=== PATIENT | male | born 1950 | race Caucasian/White ===

== ENCOUNTER 2018-11-29 11:56 | Emergency (ER) | payer MEDICARE, BC ==
[~2018-11-29] VITALS: Ht 170.2 cm; Wt 63.5 kg
--- NOTE | 2018-11-29 12:10 | ED General ---
General Stated Complaint: STROKE LIKE SYMPTOMS Source of Information: Patient Exam Limitations: No Limitations History of Present Illness Date Seen by Provider: Nov 29, 2018 Time Seen by Provider: 12:08 Initial Comments To ER per private vehicle accompanied by family with concerns of strokelike symptoms. He reports that he personally does not have any concerns of stroke but his family did. He states that he's lost his balance and fallen 4 times in the past 4 days. He did hit the back of his head 2 days ago. He has COPD, smokes cigarettes. He denies any new focal weakness. He does report a chronic cough. He is noted to be febrile at 101 on arrival. Primary care is through the [facility], he just moved here from [place] about 4 months ago and does not have a local provider. Severity: Moderate Associated Systoms: No Chest Pain, No Cough, No Diaphoresis; Fever/Chills; No Headaches, No Nausea/Vomiting; Weakness Allergies and Home Medications Allergies Coded Allergies: latex (Verified Allergy, Unknown, 11/29/18) Home Medications Cefdinir 300 Mg Capsule, 300 MG PO BID Prescribed by: MARTIN GARCIA on 11/29/18 1458 Prednisone 20 Mg Tab, 40 MG PO DAILY Prescribed by: MARTIN GARCIA on 11/29/18 1458 Patient Home Medication List Home Medication List Reviewed: Yes Review of Systems Review of Systems Constitutional: see HPI, chills, fever EENTM: see HPI Respiratory: see HPI, cough; No short of breath Cardiovascular: No chest pain Gastrointestinal: No abdominal pain, No nausea, No vomiting Genitourinary: no symptoms reported; No dysuria Musculoskeletal: no symptoms reported Skin: no symptoms reported Psychiatric/Neurological: No Symptoms Reported; Denies Headache Hematologic/Lymphatic: No Symptoms Reported Physical Exam Vital Signs Vital Signs - First Documented 11/29/18 11:59 Temp 101.4 Pulse 89 Resp 20 B/P (MAP) 128/70 (89) Pulse Ox 96 O2 Delivery Room Air Capillary Refill : Height, Weight, BMI Height: '" Weight: lbs. oz. kg; BMI Method: General Appearance: No Apparent Distress, WD/WN, Chronically ill, Other (alert and oriented, GCS 15. Speaks in full sentences no respiratory distress) Eyes: Bilateral Eye Normal Inspection, Bilateral Eye PERRL HEENT: PERRL/EOMI, TMs Normal Neck: Full Range of Motion, Normal Inspection Respiratory: No Accessory Muscle Use, No Respiratory Distress, Decreased Breath Sounds Cardiovascular: Regular Rate, Rhythm, Normal Peripheral Pulses Gastrointestinal: Normal Bowel Sounds, Non Tender, Soft Extremity: Normal Capillary Refill, Other (. Edema 2+ bilateral lower extremities) Neurologic/Psychiatric: Alert, Oriented x3 Skin: Normal Color, Warm/Dry Focused Exam Lactate Level 11/29/18 12:11: Lactic Acid Level 1.24 Lactic Acid Level Laboratory Tests Test 11/29/18 12:11 Lactic Acid Level 1.24 MMOL/L (0.50-2.00) Progress/Results/Core Measures Suspected Sepsis SIRS Temperature: Pulse: Respiratory Rate: Laboratory Tests 11/29/18 12:11: White Blood Count 16.4H Blood Pressure / Mean: 11/29/18 12:11: Lactic Acid Level 1.24 Laboratory Tests 11/29/18 12:11: Creatinine 1.40H, Platelet Count 183, Total Bilirubin 0.8 Results/Orders Lab Results Laboratory Tests Test 11/29/18 12:11 11/29/18 14:28 Range/Units White Blood Count 16.4 H 4.3-11.0 10^3/uL Red Blood Count 4.02 L 4.35-5.85 10^6/uL Hemoglobin 11.7 L 13.3-17.7 G/DL Hematocrit 35 L 40-54 % Mean Corpuscular Volume 88 80-99 FL Mean Corpuscular Hemoglobin 29 25-34 PG Mean Corpuscular Hemoglobin Concent 33 32-36 G/DL Red Cell Distribution Width 13.6 10.0-14.5 % Platelet Count 183 130-400 10^3/uL Mean Platelet Volume 12.3 H 7.4-10.4 FL Neutrophils (%) (Auto) 91 H 42-75 % Lymphocytes (%) (Auto) 4 L 12-44 % Monocytes (%) (Auto) 4 0-12 % Eosinophils (%) (Auto) 0 0-10 % Basophils (%) (Auto) 0 0-10 % Neutrophils # (Auto) 15.0 H 1.8-7.8 X 10^3 Lymphocytes # (Auto) 0.7 L 1.0-4.0 X 10^3 Monocytes # (Auto) 0.7 0.0-1.0 X 10^3 Eosinophils # (Auto) 0.0 0.0-0.3 10^3/uL Basophils # (Auto) 0.1 0.0-0.1 10^3/uL Neutrophils % (Manual) 82 % Lymphocytes % (Manual) 3 % Monocytes % (Manual) 6 % Band Neutrophils 9 % Blood Morphology Comment NORMAL Sodium Level 132 L 135-145 MMOL/L Potassium Level 4.0 3.6-5.0 MMOL/L Chloride Level 95 L 98-107 MMOL/L Carbon Dioxide Level 26 21-32 MMOL/L Anion Gap 11 5-14 MMOL/L Blood Urea Nitrogen 20 H 7-18 MG/DL Creatinine 1.40 H 0.60-1.30 MG/DL Estimat Glomerular Filtration Rate 51 BUN/Creatinine Ratio 14 Glucose Level 206 H 70-105 MG/DL Lactic Acid Level 1.24 0.50-2.00 MMOL/L Calcium Level 8.6 8.5-10.1 MG/DL Corrected Calcium 8.8 8.5-10.1 MG/DL Total Bilirubin 0.8 0.1-1.0 MG/DL Aspartate Amino Transf (AST/SGOT) 20 5-34 U/L Alanine Aminotransferase (ALT/SGPT) 9 0-55 U/L Alkaline Phosphatase 84 40-136 U/L B-Type Natriuretic Peptide 258.5 H <100.0 PG/ML Total Protein 6.5 6.4-8.2 GM/DL Albumin 3.7 3.2-4.5 GM/DL Urine Color YELLOW Urine Clarity CLEAR Urine pH 7 5-9 Urine Specific Cl[place] 1.010 L 1.016-1.022 Urine Protein 3+ H NEGATIVE Urine Glucose (UA) 3+ H NEGATIVE Urine Ketones NEGATIVE NEGATIVE Urine Nitrite NEGATIVE NEGATIVE Urine Bilirubin NEGATIVE NEGATIVE Urine Urobilinogen NORMAL NORMAL MG/DL Urine Leukocyte Esterase NEGATIVE NEGATIVE Urine RBC (Auto) 2+ H NEGATIVE Urine RBC 0-2 /HPF Urine WBC NONE /HPF Urine Renal Epithelial Cells 0-2 /HPF Urine Crystals NONE /LPF Urine Bacteria NEGATIVE /HPF Urine Casts NONE /LPF Urine Mucus NEGATIVE /LPF Urine Culture Indicated NO Micro Results Microbiology 11/29/18 Influenza Types A,B Antigen (ENMANUEL) - Final, Complete My Orders Orders - MARTIN GARCIA APRN Influenza A And B Antigens (11/29/18 12:06) Ct Head/Cervical Spine Wo (11/29/18 12:06) Chest Pa/Lat (2 View) (11/29/18 12:06) Ua Culture If Indicated (11/29/18 12:06) Cbc With Automated Diff (11/29/18 12:06) Comprehensive Metabolic Panel (11/29/18 12:06) Iv Heplock-Insert (Order) (11/29/18 12:06) BNP (11/29/18 12:06) Blood Culture (11/29/18 12:06) Lactic Acid Analyzer (11/29/18 12:06) Manual Differential (11/29/18 12:11) Ns Iv 500 Ml (Sodium Chloride 0.9%) (11/29/18 13:15) Ibuprofen Tablet (Motrin Tablet) (11/29/18 13:15) Ceftriaxone For Iv Use (Rocephin For I (11/29/18 15:00) Medications Given in ED Current Medications Medications Dose Ordered Sig/Thony Route Start Time Stop Time Status Last Admin Dose Admin Ceftriaxone Sodium 1000 mg/ Sterile Water 10 ml @ 200 mls/hr ONCE ONCE IV 11/29/18 15:00 11/29/18 15:02 DC 11/29/18 15:20 200 MLS/HR Ibuprofen 600 mg ONCE ONCE PO 11/29/18 13:15 11/29/18 13:16 DC 11/29/18 13:35 600 MG Vital Signs/I&O 11/29/18 11/29/18 11/29/18 11:59 12:35 13:35 Temp 101.4 101.4 100.9 Pulse 89 85 Resp 20 20 B/P (MAP) 128/70 (89) 129/74 Pulse Ox 96 96 O2 Delivery Room Air Capillary Refill : Diagnostic Imaging Diagonstic Imaging: Xray Comments NAME: PEDRO PABLO [facility] REC#: [id number] PT STATUS: REG ER : 1950 PHYSICIAN: MARTIN GARCIA APRN ADMIT DATE: 11/29/18/ER Draft Date of Exam:11/29/18 CHEST PA/LAT (2 VIEW) INDICATION: Stroke-like symptoms. TIME OF EXAM: 12:43 p.m. COMPARISON: No prior studies are available for comparison. FINDINGS: There is some blunting of the right costophrenic angle consistent with minimal pleural fluid or pleural thickening. The heart size is normal. The lungs are clear. Pulmonary vascularity is normal. No pneumothorax is seen. IMPRESSION: Minimal right basilar pleural fluid or pleural thickening. The study is otherwise unremarkable. Dictated on workstation # [id number] Dict: 11/29/18 1254 Trans: 11/29/18 1305 [id number] Interpreted by: JAMES NAILS MD Electronically signed by: Departure Communication (Admissions) [id number]-he remains alert and oriented with GCS 15. He voices no complaints states that he feels better at this time. Oxygen saturation is 96% on room air, heart rate is 85, blood pressure 107/70. He is afebrile. I do not find a source for his leukocytosis or fever. We will treat for exacerbation of COPD, dose of Rocephin here, Ceftin plus prednisone outpatient. Family was notified of this plan and feels that he is a fall risk at home despite the use of his walker and their home is not set up for this. He does not meet admission criteria after discussing with hospitalist. Therapist from acute rehabilitation unit has been down to evaluate the patient and also feels that he is not appropriate for admission there. He will be discharged home. We've discussed with the family the need to follow-up with a shelter of their choosing in the outpatient setting. Impression Primary Impression: COPD exacerbation Additional Impression: Frequent falls Disposition: 01 HOME, SELF-CARE Condition: Stable Departure-Patient Inst. Decision time for Depature: 14:56 Referrals: PINO OWUSU DO Patient Instructions: Exacerbation of COPD Add. Discharge Instructions: 1. Steroids and antibiotics as directed 2. Return to ER for any concerns 3. Follow-up with your doctor next week Scripts Cefdinir (Cefdinir) 300 Mg Capsule 300 MG PO BID, #14 CAP Prov: MARTIN GARCIA LEATHER STAMPER 11/29/18 Prednisone (Prednisone) 20 Mg Tab 40 MG PO DAILY, #8 TAB Prov: MARTIN GARCIA LEATHER STAMPER 11/29/18 MARTIN GARCIA APRN Nov 29, 2018 12:10
[2018-11-29 12:20] LABS: BASOPHILS # (AUTO) 0.1 10^3/uL (0.0-0.1); BASOPHILS % (AUTO) 0 % (0-10); EOSINOPHILS % (AUTO) 0 % (0-10); HEMATOCRIT 35 % (40-54); HEMOGLOBIN 11.7 G/DL (13.3-17.7); LYMPHOCYTES # (AUTO) 0.7 X 10^3 (1.0-4.0); LYMPHOCYTES % (AUTO) 4 % (12-44); MEAN CORPUSCULAR HEMOGLOBIN 29 PG (25-34); MEAN CORPUSCULAR HGB CONC 33 G/DL (32-36); MEAN CORPUSCULAR VOLUME 88 FL (80-99); MEAN PLATELET VOLUME 12.3 FL (7.4-10.4); MONOCYTES # (AUTO) 0.7 X 10^3 (0.0-1.0); MONOCYTES % (AUTO) 4 % (0-12); NEUTROPHILS % (AUTO) 91 % (42-75); PLATELET COUNT 183 10^3/uL (130-400); RED CELL DISTRIBUTION WIDTH 13.6 % (10.0-14.5); WHITE BLOOD COUNT 16.4 10^3/uL (4.3-11.0)
--- NOTE | 2018-11-29 12:46 | NUR ---
PT RETURNS FROM CT DEPT. NO S/S OF DISTRESS
[2018-11-29 12:47] LABS: BAND NEUTROPHILS 9 %; LYMPHOCYTES % (MANUAL) 3 %; MONOCYTES % (MANUAL) 6 %; NEUTROPHILS % (MANUAL) 82 %; RBC MORPH NORMAL
[2018-11-29 12:51] LABS: ALBUMIN 3.7 GM/DL (3.2-4.5); BILIRUBIN,TOTAL 0.8 MG/DL (0.1-1.0); CALCIUM 8.6 MG/DL (8.5-10.1); CREATININE SERUM 1.4 MG/DL (0.60-1.30); TOTAL PROTEIN 6.5 GM/DL (6.4-8.2)
--- NOTE | 2018-11-29 12:57 | Diagnostic Imaging Report ---
PROCEDURE: CT head and CT cervical spine without contrast. TECHNIQUE: Multiple contiguous axial images were obtained through the brain and cervical spine without the use of intravenous contrast. Sagittal and coronal reformations through the cervical spine were then performed. INDICATION: Fall. COMPARISON: No prior studies are available for comparison. CT head: FINDINGS: The ventricles and sulci are within normal limits. No sulcal effacement, midline shift, or hemorrhage is detected. Cisterns are patent. The visualized paranasal sinuses are clear. IMPRESSION: No acute intracranial process is identified. CT cervical spine: FINDINGS: Alignment is normal. There are postop changes of ACDF from C3 through C6, transfixed by anterior plate and multiple screws. There is also decompression laminectomy at these levels. The hardware appears to be intact. No definite fracture or loosening is seen. Prevertebral tissues are normal. Odontoid appears intact. IMPRESSION: C3 through C6 ACDF as well as posterior decompression laminectomy. No acute abnormality is detected. Dictated by: Dictated on workstation # [id number]
--- NOTE | 2018-11-29 13:05 | Diagnostic Imaging Report ---
INDICATION: Stroke-like symptoms. TIME OF EXAM: 12:43 p.m. COMPARISON: No prior studies are available for comparison. FINDINGS: There is some blunting of the right costophrenic angle consistent with minimal pleural fluid or pleural thickening. The heart size is normal. The lungs are clear. Pulmonary vascularity is normal. No pneumothorax is seen. IMPRESSION: Minimal right basilar pleural fluid or pleural thickening. The study is otherwise unremarkable. Dictated by: Dictated on workstation # [id number]
[2018-11-29] MEDS ORDERED: NS IV 500 ML 500 ML IV SCH (13:15)
[2018-11-29] MEDS ORDERED: IBUPROFEN 600 MG (MOTRIN) TAB PO ONE (13:15)
[2018-11-29 14:35] LABS: BILIRUBIN,URINE NEGATIVE (NEGATIVE); CLARITY,URINE CLEAR; COLOR,URINE YELLOW; GLUCOSE, URINE (UA) 3+ (NEGATIVE); KETONES,URINE NEGATIVE (NEGATIVE); LEUKOCYTE ESTERASE ,URINE NEGATIVE (NEGATIVE); NITRITE,URINE NEGATIVE (NEGATIVE); PH,URINE 7 (5-9); PROTEIN,URINE 3+ (NEGATIVE); UROBILINOGEN,URINE NORMAL (NORMAL)
[2018-11-29 14:42] LABS: BACTERIA,URINE NEGATIVE /HPF; RBC,URINE 0-2 /HPF; RENAL EPITHELIAL CELLS,URINE 0-2 /HPF
[2018-11-29] MEDS ORDERED: PRD20T PO (14:58)
[2018-11-29] MEDS ORDERED: CEFD300C3 PO (14:58)
[2018-11-29] MEDS ORDERED: cefTRIAXone FOR IV USE 1,000 MG in WATER (STERILE) FOR INJECTION 10 ML IV ONE (15:00)
[2018-11-29 17:06] VITALS: BP 100/61
== END 2018-11-29 17:01 | disposition home or self-care (01) ==
LOC: ER 11:58
DX: J44.1 Chronic obstructive pulmonary disease with (acute) exacerbation (principal); R29.6 Repeated falls; F17.210 Nicotine dependence, cigarettes, uncomplicated; Z79.52 Long term (current) use of systemic steroids; Z91.040 Latex allergy status
CPT/HCPCS: 36415; 70450; 71046; 72125; 80053; 81000; 83605; 83880; 85007; 85027; 87040; 87804; 93005